=== PATIENT | female | born 1955 ===

== ENCOUNTER 2017-11-17 12:08 | Observation (INO) | payer BC ==
[2017-11-17 13:59] LABS: BASO # 0.1 K/uL (0.0-0.2); BASO % 0.8 % (0.0-2.0); EOS # 0.1 K/uL (0.0-0.7); EOS % 2.1 % (0.0-4.0); HEMOGLOBIN 12.9 g/dL (11.0-16.0); LYMPH # 2.4 K/uL (1.0-4.3); LYMPH % 33.8 % (20.0-40.0); MEAN CELL VOLUME 89.2 fL (81.0-99.0); MEAN CORPUSCULAR HEMOGLOBIN 31.3 pg (27.0-31.0); MEAN CORPUSCULAR HGB CONC 35.1 g/dL (33.0-37.0); MEAN PLATELET VOLUME 8.7 fL (7.2-11.7); MONO # 0.4 K/uL (0.0-0.8); MONO % 6.1 % (0.0-10.0); NEUT % 57.2 % (50.0-75.0); NRBC % 0.1 % (0.0-2.0); RBC 4.11 Mil/uL (3.80-5.20); RED CELL DISTRIBUTION WIDTH 12.3 % (11.5-14.5)
[2017-11-17 14:27] LABS: ALB/GLOB RATIO 1.4 (1.0-2.1); ALBUMIN 4.1 g/dL (3.5-5.0); ALT/SGPT 15 U/L (9-52); AST/SGOT 24 U/L (14-36); BLOOD UREA NITROGEN 16 mg/dL (7-17); CALCIUM 9.3 mg/dl (8.6-10.4); GFR AFRICAN-AMERICAN > 60; GFR NON-AFRICAN AMERICAN > 60
[2017-11-17 14:41] LABS: B-TYPE NATRIURETIC PEPTIDE 148 pg/mL (0-900)
--- NOTE | 2017-11-17 14:55 | C.PDOC ---
History Of Present Illness 62 year old female presents to the ED for evaluation of dizziness and chest pressure which began yesterday. Patient states she was at work when she felt symptoms and went to the nurse, who noted her blood pressure to be 190/90 and advised her to come to the ED for further evaluation. Upon arrival, patient states her symptoms have improved but she still feels pressure to her chest. Patient states she took Aspirin last night. She has been compliant with her medications. She denies nausea, vomiting, extremity numbness/weakness. Time Seen by Provider: 11/17/17 13:10 Chief Complaint (Nursing): High Blood Pressure History Per: Patient History/Exam Limitations: no limitations Onset/Duration Of Symptoms: Hrs Current Symptoms Are (Timing): Better Associated Symptoms: Chest Pain. denies: Focal Weakness Additional History Per: Patient Past Medical History Reviewed: Historical Data, Nursing Documentation, Vital Signs Vital Signs: Last Vital Signs Temp 98.5 F 11/18/17 06:53 Pulse 71 11/18/17 00:00 Resp 20 11/18/17 00:00 BP 148/74 11/18/17 06:53 Pulse Ox 98 11/18/17 00:00 - Medical History PMH: HTN Surgical History: No Surg Hx Family History: States: Unknown Family Hx - Social History Hx Alcohol Use: No Hx Substance Use: No Review Of Systems Cardiovascular: Positive for: Chest Pain Respiratory: Positive for: Shortness of Breath Neurological: Positive for: Dizziness Physical Exam - Physical Exam Appears: Non-toxic, No Acute Distress Skin: Normal Color, Warm, Dry Head: Atraumatic, Normacephalic Eye(s): bilateral: Normal Inspection Oral Mucosa: Moist Neck: Supple Chest: Symmetrical, No Deformity, No Tenderness Cardiovascular: Rhythm Regular, No Murmur Respiratory: Normal Breath Sounds, No Rales, No Rhonchi, No Wheezing Gastrointestinal/Abdominal: Normal Exam, Bowel Sounds, Soft Extremity: Normal ROM, Capillary Refill (less than 2 seconds ) Neurological/Psych: Oriented x3, Normal Speech, Normal Cognition Gait: Steady ED Course And Treatment - Laboratory Results Result Diagrams: 11/17/17 13:48 11/17/17 13:48 ECG: Interpreted By Me, Viewed By Me ECG Rhythm: Sinus Rhythm Interpretation Of ECG: Normal Sinus Rhythm at rate 79bpm. No ST/T wave abnormalities. Normal intervals. Normal axis. Rate From EC O2 Sat by Pulse Oximetry: 99 (on RA) Pulse Ox Interpretation: Normal Medical Decision Making Medical Decision Making: Assessment: chest pain Plan: * bloodwork * CXR * EKG * reassess and disposition Progress: Bloodwork, CXR, and EKG ordered and reviewed. 1509: Case discussed with Dr. Matos (medicine environmental test technician) and phlebotomist medical lab assistant. Patient will be admitted to Tele-Obs for further monitoring of her chest pain and blood pressure. Disposition Discussed With .: Parker Matos Jr. Doctor Will See Patient In The: Hospital Counseled Patient/Family Regarding: Studies Performed, Diagnosis - Disposition Disposition: HOSPITALIZED Disposition Time: 15:12 Condition: FAIR - Clinical Impression Clinical Impression: Chest pain - Scribe Statement The provider has reviewed the documentation as recorded by the Scribe (Jacqueline Perales) Provider Attestation: All medical record entries made by the Scribe were at my direction and personally dictated by me. I have reviewed the chart and agree that the record accurately reflects my personal performance of the history, physical exam, medical decision making, and the department course for this patient. I have also personally directed, reviewed, and agree with the discharge instructions and disposition.
--- NOTE | 2017-11-17 15:05 | RAD ---
PROCEDURE: CHEST RADIOGRAPH, 1 VIEW HISTORY: Shortness of breath COMPARISON: None available. FINDINGS: LUNGS: The lungs are well inflated and clear. PLEURA: No pneumothorax or pleural fluid seen. CARDIOVASCULAR: The heart is normal in size. Atherosclerotic aortic arch calcifications are present. OSSEOUS STRUCTURES: No significant abnormalities. VISUALIZED UPPER ABDOMEN: Normal. OTHER FINDINGS: None. IMPRESSION: No active pulmonary disease.
--- NOTE | 2017-11-17 16:37 | CP.PCM.HP ---
History of Present Illness - History of Present Illness History of Present Illness: CC: Chest pain 62 year old [place] female with past medical history of hypertension and vertigo presents to [facility] with pressure-like left sided chest pain that started this morning. Patient describes the pain 7/10 at its worst but currently 0/10. 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 She states had been dealing with multiple stressors at work this week and today while walking a child to the nurse for his medications she felt the pain begin accompanied by lightheadedness and shortness of breath. 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 The patient states she has never had this type of pain before and describes the lightheadedness as far different from her vertigo spells. Patient has been worked up for her vertigo before and has only had a few episodes in her life. Patient says she was supposed to get an MRI tomorrow for further evaluation as per her PMD. She states the lightheadedness has completely resolved. She states the that the chest pain lasted for 40 minutes and subsided before presenting to the ER. Patient states she took her blood pressure medication the previous night as well as a baby aspirin. Patient denies radiation of pain, numbness/tingling, abdominal pain, or change in pain with position. Patient states she sees her contour path tape mill operator in [place] once a year. States she had a stress test done by him three years ago which was normal. Patient states she checks her pressure at home and is usually 140/80 and never over 160/90. PMD: Dr. Underwood Past medical history: Hypertension diagnosed 7 years ago, vertigo Allergies: codeine- nausea/vomit Surgical history: benign throat cyst removal 2008 Hospitalizations: denies Social: denies tobacco use, denies recreational drugs, drinks 2 glasses of wine once a month, lives in [place], [place] with daughter Family History: Mother- HTN, stroke, of [place] age 57. Father-HTN, of [place] age 69. Older sister and brother HTN. Brother lymphoma age 41. Has two daughters and 2 grandchildren all alive and well. Medications: Ramipril 10mg HS, Aspirin 81 mg HS Present on Admission - Present on Admission Any Indicators Present on Admission: No History of DVT/PE: No History of Uncontrolled Diabetes: No Urinary Catheter: No Decubitus Ulcer Present: No Review of Systems - Constitutional Constitutional: absent: Chills, Fever - EENT Eyes: absent: Blurred Vision, Change in Vision Nose/Mouth/Throat: absent: Sore Throat - Cardiovascular Cardiovascular: Chest Pain, Chest Pain at Rest, Dyspnea, Palpitations. absent: Leg Edema - Respiratory Respiratory: absent: Cough, Dyspnea, Wheezing, Stridor - Gastrointestinal Gastrointestinal: absent: Abdominal Pain, Constipation, Diarrhea, Nausea, Vomiting - Genitourinary Genitourinary: absent: Difficulty Urinating, Dysuria, Hematuria - Musculoskeletal Musculoskeletal: absent: Muscle Weakness, Numbness, Stiffness, Tingling - Integumentary Integumentary: absent: Rash - Neurological Neurological: Dizziness. absent: Confusion, Focal Weakness, Vertigo Past Patient History - Past Social History Smoking Status: Never Smoked - CARDIAC Hx Hypertension: Yes - NEUROLOGICAL Hx Vertigo: Yes - PSYCHIATRIC Hx Substance Use: No - SURGICAL HISTORY Hx Surgeries: No - ANESTHESIA Hx Anesthesia: No Meds Allergies/Adverse Reactions: Allergies Allergy/AdvReac Type Severity Reaction Status Date / Time codeine Allergy Mild ITCHING Verified 11/17/17 13:39 Physical Exam - Constitutional Appears: Non-toxic, No Acute Distress - Head Exam Head Exam: ATRAUMATIC, NORMAL INSPECTION, NORMOCEPHALIC - Eye Exam Eye Exam: EOMI, Normal appearance - ENT Exam ENT Exam: Mucous Membranes Moist - Respiratory Exam Respiratory Exam: Clear to Auscultation Bilateral, NORMAL BREATHING PATTERN. absent: Rales, Rhonchi, Wheezes, Respiratory Distress, Stridor - Cardiovascular Exam Cardiovascular Exam: REGULAR RHYTHM, RRR, +S1, +S2 - GI/Abdominal Exam GI & Abdominal Exam: Normal Bowel Sounds, Soft. absent: Tenderness - Extremities Exam Extremities exam: Positive for: normal inspection. Negative for: pedal edema, tenderness - Back Exam Back exam: NORMAL INSPECTION - Neurological Exam Neurological exam: Alert, Oriented x3 - Psychiatric Exam Psychiatric exam: Normal Affect, Normal Mood - Skin Skin Exam: Intact, Normal Color, Warm Results - Vital Signs Recent Vital Signs: Last Vital Signs Temp 97.7 F 11/17/17 12:18 Pulse 68 11/17/17 16:11 Resp 16 11/17/17 16:11 BP 169/66 H 11/17/17 16:11 Pulse Ox 100 11/17/17 16:11 - Labs Result Diagrams: 11/17/17 13:48 11/17/17 13:48 Labs: Laboratory Results - last 24 hr 11/17/17 11/17/17 11/17/17 12:22 13:48 13:48 WBC 7.0 RBC 4.11 Hgb 12.9 Hct 36.7 MCV 89.2 MCH 31.3 H MCHC 35.1 RDW 12.3 Plt Count 225 MPV 8.7 Neut % (Auto) 57.2 Lymph % (Auto) 33.8 [place] % (Auto) 6.1 Eos % (Auto) 2.1 Baso % (Auto) 0.8 Neut # (Auto) 4.0 Lymph # (Auto) 2.4 [place] # (Auto) 0.4 Eos # (Auto) 0.1 Baso # (Auto) 0.1 Sodium 143 Potassium 4.0 Chloride 104 Carbon Dioxide 28 Anion Gap 15 BUN 16 Creatinine 0.6 L Est GFR ( Amer) > 60 Est GFR (Non-Af Amer) > 60 POC Glucose (mg/dL) 136 H Random Glucose 132 H Calcium 9.3 Total Bilirubin 0.4 AST 24 ALT 15 Alkaline Phosphatase 58 Troponin I < 0.0120 NT-Pro-B Natriuret Pep 148 Total Protein 7.2 Albumin 4.1 Globulin 3.1 Albumin/Globulin Ratio 1.4 Assessment & Plan - Assessment and Plan (Free Text) Assessment: Chest Pain r/o ACS admit to tele Cardiology consulted, Dr. Steele, help appreciated Troponin I (-), f/u SANDRA x2 and EKGs first EKG NSR at 79 f/u lipid panel, HgA1C, TSH, T4 HTN continue home medication Ramipril 10mg HS ASA 81mg po daily continue to monitor Prophylaxis GI not indicated Heparin 5000u q8h, scds discussed with Dr. Matos
[2017-11-17 21:59] LABS: CK-MB 0.63 ng/mL (0.0-3.38)
[2017-11-18 00:38] VITALS: RESP 20
[2017-11-18 07:26] LABS: BASO # 0.1 K/uL (0.0-0.2); BASO % 1.7 % (0.0-2.0); EOS # 0.2 K/uL (0.0-0.7); EOS % 2.7 % (0.0-4.0); HEMOGLOBIN 13.4 g/dL (11.0-16.0); LYMPH % 32.6 % (20.0-40.0); MEAN CELL VOLUME 88.4 fL (81.0-99.0); MEAN CORPUSCULAR HEMOGLOBIN 30.8 pg (27.0-31.0); MEAN CORPUSCULAR HGB CONC 34.8 g/dL (33.0-37.0); MEAN PLATELET VOLUME 8.7 fL (7.2-11.7); MONO # 0.5 K/uL (0.0-0.8); MONO % 7.4 % (0.0-10.0); NEUT # 3.4 K/uL (1.8-7.0); NEUT % 55.6 % (50.0-75.0); RBC 4.37 Mil/uL (3.80-5.20); RED CELL DISTRIBUTION WIDTH 12.4 % (11.5-14.5); WHITE BLOOD COUNT 6.2 K/uL (4.8-10.8)
[2017-11-18 07:36] LABS: ALB/GLOB RATIO 1.3 (1.0-2.1); ALBUMIN 3.9 g/dL (3.5-5.0); ALT/SGPT 14 U/L (9-52); AST/SGOT 22 U/L (14-36); BLOOD UREA NITROGEN 15 mg/dL (7-17); CALCIUM 9.2 mg/dl (8.6-10.4); GFR AFRICAN-AMERICAN > 60; GFR NON-AFRICAN AMERICAN > 60; HDL CHOLESTEROL 52 mg/dL (30-70)
[2017-11-18 07:46] LABS: LDL CHOLESTEROL 132 mg/dL (0-129)
[2017-11-18 08:03] VITALS: BP 135/77; PULSE 65; TEMP 98.4; O2SAT 100
--- NOTE | 2017-11-18 08:15 | CP.PCM.CON ---
Past Patient History - Past Social History Smoking Status: Never Smoked - CARDIAC Hx Hypertension: Yes - NEUROLOGICAL Hx Vertigo: Yes - PSYCHIATRIC Hx Substance Use: No - SURGICAL HISTORY Hx Surgeries: No - ANESTHESIA Hx Anesthesia: No Meds Allergies/Adverse Reactions: Allergies Allergy/AdvReac Type Severity Reaction Status Date / Time codeine Allergy Mild ITCHING Verified 11/17/17 13:39 - Medications Medications: Current Medications Aspirin (Ecotrin) 81 mg PO DAILY [facility] Enalapril Maleate (Vasotec) 10 mg PO HS [facility] Last Admin: 11/17/17 21:04 Dose: 10 mg Heparin Sodium (Porcine) (Heparin) 5,000 units SC Q8 [facility] Last Admin: 11/18/17 06:51 Dose: 5,000 units Results - Vital Signs Recent Vital Signs: Last Vital Signs Temp 98.4 F 11/18/17 08:02 Pulse 65 11/18/17 08:02 Resp 20 11/18/17 08:02 BP 135/77 11/18/17 08:02 Pulse Ox 100 11/18/17 08:02 - Labs Result Diagrams: 11/18/17 06:56 11/18/17 06:56 Labs: Laboratory Results - last 24 hr 11/17/17 11/17/17 11/17/17 12:22 13:48 13:48 WBC 7.0 RBC 4.11 Hgb 12.9 Hct 36.7 MCV 89.2 MCH 31.3 H MCHC 35.1 RDW 12.3 Plt Count 225 MPV 8.7 Neut % (Auto) 57.2 Lymph % (Auto) 33.8 [place] % (Auto) 6.1 Eos % (Auto) 2.1 Baso % (Auto) 0.8 Neut # (Auto) 4.0 Lymph # (Auto) 2.4 [place] # (Auto) 0.4 Eos # (Auto) 0.1 Baso # (Auto) 0.1 Sodium 143 Potassium 4.0 Chloride 104 Carbon Dioxide 28 Anion Gap 15 BUN 16 Creatinine 0.6 L Est GFR ( Amer) > 60 Est GFR (Non-Af Amer) > 60 POC Glucose (mg/dL) 136 H Random Glucose 132 H Calcium 9.3 Phosphorus Magnesium Total Bilirubin 0.4 AST 24 ALT 15 Alkaline Phosphatase 58 Total Creatine Kinase CK-MB (Mass) Troponin I < 0.0120 NT-Pro-B Natriuret Pep 148 Total Protein 7.2 Albumin 4.1 Globulin 3.1 Albumin/Globulin Ratio 1.4 Triglycerides Cholesterol LDL Cholesterol Direct HDL Cholesterol Free T4 11/17/17 11/18/17 11/18/17 21:30 02:34 06:56 WBC RBC Hgb Hct MCV MCH MCHC RDW Plt Count MPV Neut % (Auto) Lymph % (Auto) [place] % (Auto) Eos % (Auto) Baso % (Auto) Neut # (Auto) Lymph # (Auto) [place] # (Auto) Eos # (Auto) Baso # (Auto) Sodium 146 Potassium 3.9 Chloride 106 Carbon Dioxide 28 Anion Gap 16 BUN 15 Creatinine 0.6 L Est GFR ( Amer) > 60 Est GFR (Non-Af Amer) > 60 POC Glucose (mg/dL) Random Glucose 96 Calcium 9.2 Phosphorus 4.1 Magnesium 2.2 Total Bilirubin 0.7 AST 22 ALT 14 Alkaline Phosphatase 52 Total Creatine Kinase 60 51 CK-MB (Mass) 0.63 0.60 Troponin I < 0.0120 < 0.0120 NT-Pro-B Natriuret Pep Total Protein 6.9 Albumin 3.9 Globulin 3.0 Albumin/Globulin Ratio 1.3 Triglycerides 166 H Cholesterol 222 H LDL Cholesterol Direct 132 H HDL Cholesterol 52 Free T4 11/18/17 11/18/17 06:56 06:56 WBC 6.2 RBC 4.37 Hgb 13.4 Hct 38.6 MCV 88.4 MCH 30.8 MCHC 34.8 RDW 12.4 Plt Count 208 MPV 8.7 Neut % (Auto) 55.6 Lymph % (Auto) 32.6 [place] % (Auto) 7.4 Eos % (Auto) 2.7 Baso % (Auto) 1.7 Neut # (Auto) 3.4 Lymph # (Auto) 2.0 [place] # (Auto) 0.5 Eos # (Auto) 0.2 Baso # (Auto) 0.1 Sodium Potassium Chloride Carbon Dioxide Anion Gap BUN Creatinine Est GFR ( Amer) Est GFR (Non-Af Amer) POC Glucose (mg/dL) Random Glucose Calcium Phosphorus Magnesium Total Bilirubin AST ALT Alkaline Phosphatase Total Creatine Kinase CK-MB (Mass) Troponin I NT-Pro-B Natriuret Pep Total Protein Albumin Globulin Albumin/Globulin Ratio Triglycerides Cholesterol LDL Cholesterol Direct HDL Cholesterol Free T4 0.94
--- NOTE | 2017-11-18 08:15 | CP.PCM.CON ---
History of Present Illness - History of Present Illness History of Present Illness: patient seen/examined. consutl to follow. patient has a known hiostory of HTN, presented with acute hypertension. recommend conitnued medical therapy. cardiac enzymes are negative. Stable for discharge. Past Patient History - Past Social History Smoking Status: Never Smoked - CARDIAC Hx Hypertension: Yes - NEUROLOGICAL Hx Vertigo: Yes - PSYCHIATRIC Hx Substance Use: No - SURGICAL HISTORY Hx Surgeries: No - ANESTHESIA Hx Anesthesia: No Meds Allergies/Adverse Reactions: Allergies Allergy/AdvReac Type Severity Reaction Status Date / Time codeine Allergy Mild ITCHING Verified 11/17/17 13:39 - Medications Medications: Current Medications Aspirin (Ecotrin) 81 mg PO DAILY [facility] Enalapril Maleate (Vasotec) 10 mg PO HS [facility] Last Admin: 11/17/17 21:04 Dose: 10 mg Heparin Sodium (Porcine) (Heparin) 5,000 units SC Q8 [facility] Last Admin: 11/18/17 06:51 Dose: 5,000 units Results - Vital Signs Recent Vital Signs: Last Vital Signs Temp 98.4 F 11/18/17 08:02 Pulse 65 11/18/17 08:02 Resp 20 11/18/17 08:02 BP 135/77 11/18/17 08:02 Pulse Ox 100 11/18/17 08:02 - Labs Result Diagrams: 11/18/17 06:56 11/18/17 06:56 Labs: Laboratory Results - last 24 hr 11/17/17 11/17/17 11/17/17 12:22 13:48 13:48 WBC 7.0 RBC 4.11 Hgb 12.9 Hct 36.7 MCV 89.2 MCH 31.3 H MCHC 35.1 RDW 12.3 Plt Count 225 MPV 8.7 Neut % (Auto) 57.2 Lymph % (Auto) 33.8 [place] % (Auto) 6.1 Eos % (Auto) 2.1 Baso % (Auto) 0.8 Neut # (Auto) 4.0 Lymph # (Auto) 2.4 [place] # (Auto) 0.4 Eos # (Auto) 0.1 Baso # (Auto) 0.1 Sodium 143 Potassium 4.0 Chloride 104 Carbon Dioxide 28 Anion Gap 15 BUN 16 Creatinine 0.6 L Est GFR ( Amer) > 60 Est GFR (Non-Af Amer) > 60 POC Glucose (mg/dL) 136 H Random Glucose 132 H Calcium 9.3 Phosphorus Magnesium Total Bilirubin 0.4 AST 24 ALT 15 Alkaline Phosphatase 58 Total Creatine Kinase CK-MB (Mass) Troponin I < 0.0120 NT-Pro-B Natriuret Pep 148 Total Protein 7.2 Albumin 4.1 Globulin 3.1 Albumin/Globulin Ratio 1.4 Triglycerides Cholesterol LDL Cholesterol Direct HDL Cholesterol Free T4 11/17/17 11/18/17 11/18/17 21:30 02:34 06:56 WBC RBC Hgb Hct MCV MCH MCHC RDW Plt Count MPV Neut % (Auto) Lymph % (Auto) [place] % (Auto) Eos % (Auto) Baso % (Auto) Neut # (Auto) Lymph # (Auto) [place] # (Auto) Eos # (Auto) Baso # (Auto) Sodium 146 Potassium 3.9 Chloride 106 Carbon Dioxide 28 Anion Gap 16 BUN 15 Creatinine 0.6 L Est GFR ( Amer) > 60 Est GFR (Non-Af Amer) > 60 POC Glucose (mg/dL) Random Glucose 96 Calcium 9.2 Phosphorus 4.1 Magnesium 2.2 Total Bilirubin 0.7 AST 22 ALT 14 Alkaline Phosphatase 52 Total Creatine Kinase 60 51 CK-MB (Mass) 0.63 0.60 Troponin I < 0.0120 < 0.0120 NT-Pro-B Natriuret Pep Total Protein 6.9 Albumin 3.9 Globulin 3.0 Albumin/Globulin Ratio 1.3 Triglycerides 166 H Cholesterol 222 H LDL Cholesterol Direct 132 H HDL Cholesterol 52 Free T4 11/18/17 11/18/17 06:56 06:56 WBC 6.2 RBC 4.37 Hgb 13.4 Hct 38.6 MCV 88.4 MCH 30.8 MCHC 34.8 RDW 12.4 Plt Count 208 MPV 8.7 Neut % (Auto) 55.6 Lymph % (Auto) 32.6 [place] % (Auto) 7.4 Eos % (Auto) 2.7 Baso % (Auto) 1.7 Neut # (Auto) 3.4 Lymph # (Auto) 2.0 [place] # (Auto) 0.5 Eos # (Auto) 0.2 Baso # (Auto) 0.1 Sodium Potassium Chloride Carbon Dioxide Anion Gap BUN Creatinine Est GFR ( Amer) Est GFR (Non-Af Amer) POC Glucose (mg/dL) Random Glucose Calcium Phosphorus Magnesium Total Bilirubin AST ALT Alkaline Phosphatase Total Creatine Kinase CK-MB (Mass) Troponin I NT-Pro-B Natriuret Pep Total Protein Albumin Globulin Albumin/Globulin Ratio Triglycerides Cholesterol LDL Cholesterol Direct HDL Cholesterol Free T4 0.94
--- NOTE | 2017-11-18 19:44 | CP.PCM.DIS ---
Provider - Provider Date of Admission: 11/17/17 15:11 Attending physician: Parker Matos Jr, MD Consults: Deirdre: Cedric Time Spent in preparation of Discharge (in minutes): 45 Hospital Course - Lab Results Lab Results: Most Recent Lab Values WBC 6.2 K/uL (4.8-10.8) 11/18/17 06:56 RBC 4.37 Mil/uL (3.80-5.20) 11/18/17 06:56 Hgb 13.4 g/dL (11.0-16.0) 11/18/17 06:56 Hct 38.6 % (34.0-47.0) 11/18/17 06:56 MCV 88.4 fL (81.0-99.0) 11/18/17 06:56 MCH 30.8 pg (27.0-31.0) 11/18/17 06:56 MCHC 34.8 g/dL (33.0-37.0) 11/18/17 06:56 RDW 12.4 % (11.5-14.5) 11/18/17 06:56 Plt Count 208 K/uL (130-400) 11/18/17 06:56 MPV 8.7 fL (7.2-11.7) 11/18/17 06:56 Neut % (Auto) 55.6 % (50.0-75.0) 11/18/17 06:56 Lymph % (Auto) 32.6 % (20.0-40.0) 11/18/17 06:56 [place] % (Auto) 7.4 % (0.0-10.0) 11/18/17 06:56 Eos % (Auto) 2.7 % (0.0-4.0) 11/18/17 06:56 Baso % (Auto) 1.7 % (0.0-2.0) 11/18/17 06:56 Neut # (Auto) 3.4 K/uL (1.8-7.0) 11/18/17 06:56 Lymph # (Auto) 2.0 K/uL (1.0-4.3) 11/18/17 06:56 [place] # (Auto) 0.5 K/uL (0.0-0.8) 11/18/17 06:56 Eos # (Auto) 0.2 K/uL (0.0-0.7) 11/18/17 06:56 Baso # (Auto) 0.1 K/uL (0.0-0.2) 11/18/17 06:56 Sodium 146 mmol/L (132-148) 11/18/17 06:56 Potassium 3.9 mmol/L (3.6-5.2) 11/18/17 06:56 Chloride 106 mmol/L (98-107) 11/18/17 06:56 Carbon Dioxide 28 mmol/L (22-30) 11/18/17 06:56 Anion Gap 16 (10-20) 11/18/17 06:56 BUN 15 mg/dL (7-17) 11/18/17 06:56 Creatinine 0.6 mg/dL (0.7-1.2) L 11/18/17 06:56 Est GFR ( Amer) > 60 11/18/17 06:56 Est GFR (Non-Af Amer) > 60 11/18/17 06:56 POC Glucose (mg/dL) 136 mg/dL (65-110) H 11/17/17 12:22 Random Glucose 96 mg/dL (65-105) 11/18/17 06:56 Hemoglobin A1c 5.3 % (4.2-6.5) 11/18/17 06:56 Calcium 9.2 mg/dl (8.6-10.4) 11/18/17 06:56 Phosphorus 4.1 mg/dL (2.5-4.5) 11/18/17 06:56 Magnesium 2.2 mg/dL (1.6-2.3) 11/18/17 06:56 Total Bilirubin 0.7 mg/dL (0.2-1.3) 11/18/17 06:56 AST 22 U/L (14-36) 11/18/17 06:56 ALT 14 U/L (9-52) 11/18/17 06:56 Alkaline Phosphatase 52 U/L (38-126) 11/18/17 06:56 Total Creatine Kinase 51 U/L (30-135) 11/18/17 02:34 CK-MB (Mass) 0.60 ng/mL (0.0-3.38) 11/18/17 02:34 Troponin I < 0.0120 ng/mL (0.00-0.120) 11/18/17 02:34 NT-Pro-B Natriuret Pep 148 pg/mL (0-900) 11/17/17 13:48 Total Protein 6.9 g/dL (6.3-8.3) 11/18/17 06:56 Albumin 3.9 g/dL (3.5-5.0) 11/18/17 06:56 Globulin 3.0 gm/dL (2.2-3.9) 11/18/17 06:56 Albumin/Globulin Ratio 1.3 (1.0-2.1) 11/18/17 06:56 Triglycerides 166 mg/dL (0-149) H 11/18/17 06:56 Cholesterol 222 mg/dL (0-199) H 11/18/17 06:56 LDL Cholesterol Direct 132 mg/dL (0-129) H 11/18/17 06:56 HDL Cholesterol 52 mg/dL (30-70) 11/18/17 06:56 Free T4 0.94 ng/dL (0.78-2.19) 11/18/17 06:56 TSH 3rd Generation 1.85 mIU/L (0.46-4.68) 11/18/17 06:56 - Hospital Course Hospital Course: 62 year old [place] female with past medical history of hypertension and vertigo presents to [facility] with pressure-like left sided chest pain that started this morning. Patient describes the pain 7/10 at its worst but currently 0/10. 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 She states had been dealing with multiple stressors at work this week and today while walking a child to the nurse for his medications she felt the pain begin accompanied by lightheadedness and shortness of breath. 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 The patient states she has never had this type of pain before and describes the lightheadedness as far different from her vertigo spells. Patient has been worked up for her vertigo before and has only had a few episodes in her life. Patient says she was supposed to get an MRI tomorrow for further evaluation as per her PMD. She states the lightheadedness has completely resolved. She states the that the chest pain lasted for 40 minutes and subsided before presenting to the ER. Patient states she took her blood pressure medication the previous night as well as a baby aspirin. Patient denies radiation of pain, numbness/tingling, abdominal pain, or change in pain with position. Patient states she sees her field artillery crewmember in [place] once a year. States she had a stress test done by him three years ago which was normal. Patient states she checks her pressure at home and is usually 140/80 and never over 160/90. Patient had 3 negative trops and [address] segment changes or arrythmogenic intervals. Patient was seen by Dr. Steele and cleared for discharge. Patient did not want to wait to be seen by Dr. Matos so was signed out AMA Discharge Exam - Head Exam Head Exam: ATRAUMATIC, NORMAL INSPECTION, NORMOCEPHALIC - Eye Exam Eye Exam: EOMI, Normal appearance, PERRL Pupil Exam: NORMAL ACCOMODATION, PERRL - Respiratory Exam Respiratory Exam: Clear to PA & Lateral, NORMAL BREATHING PATTERN, UNREMARKABLE - Cardiovascular Exam Cardiovascular Exam: REGULAR RHYTHM - GI/Abdominal Exam GI & Abdominal Exam: Normal Bowel Sounds, Soft. absent: Distended, Tenderness - Neurological Exam Neurological exam: Alert, CN II-XII Intact, Normal Gait, Oriented x3, Reflexes Normal - Psychiatric Exam Psychiatric exam: Normal Affect, Normal Mood - Skin Skin Exam: Dry, Intact, Normal Color, Warm Discharge Plan - Follow Up Plan Condition: FAIR Disposition: AGAINST MEDICAL ADVICE Instructions: Chest Pain (DC), Heart Disease in Women (DC) Referrals: Parker Matos Jr., MD [Medical Doctor] - Janeth Steele MD [Staff Provider] -
--- NOTE | 2017-11-18 21:24 | CARD ---
APPROVED REPORT EKG Measurement Heart [id number] HI 130P41 [id number] <Conclusion> Normal sinus rhythm Normal ECG
--- NOTE | 2017-11-18 21:56 | CARD ---
APPROVED REPORT EKG Measurement Heart [id number] <Conclusion> Normal sinus rhythm Normal ECG
--- NOTE | 2017-11-19 20:33 | CARD ---
APPROVED REPORT EKG Measurement Heart [id number] MI 136P43 [id number] <Conclusion> Normal sinus rhythm Normal ECG
== END 2017-11-18 14:22 | disposition left against medical advice (07) ==
LOC: C.ER 12:08 → C.9E 15:11 → C.6T 17:18
PROVIDERS: ADMIT Internal Medicine; ATTEND Internal Medicine
DX: R07.9 Chest pain, unspecified (principal); Z88.5 Allergy status to narcotic agent; Z82.49 Family history of ischemic heart disease and other diseases of the circulatory system; Z79.82 Long term (current) use of aspirin; I11.9 Hypertensive heart disease without heart failure
CPT/HCPCS: 36415; 71045; 80053; 80061; 82948; 83036; 83735; 83880; 84100; 84439; 84443; 84484; 85025; 93005; 96372; 99285; G0378; J1644